=== PATIENT | male | born 1970 | race African-American/Black ===

== ENCOUNTER 2019-07-07 11:14 | Emergency (ER) | payer OTHER ==
[2019-07-07] MEDS ORDERED: Amoxicillin/Clavulanate K 875-125 MG Tab PO ONE (11:42)
[2019-07-07] MEDS ORDERED: Diphtheria,Pertussis(Acell),Tetanus Vaccine 0.5 ML SDV IM ONE (11:42)
[2019-07-07] MEDS ORDERED: Bacitracin/Neomycin/Polymyxin B Oint 0.9 GM U/D Packet TOP ONE (11:43)
--- NOTE | 2019-07-07 11:49 | EDM.PDOC ---
ED HPI GENERAL MEDICAL PROBLEM - General Chief Complaint: Upper Extremity Injury/Pain Stated Complaint: crush injury of left index finger Time Seen by Provider: 07/07/19 11:18 Source of Information: Reports: Patient History Limitations: Reports: No Limitations - History of Present Illness INITIAL COMMENTS - FREE TEXT/NARRATIVE: Smashed left index finger in piece of equipment Unknown tetanus status Onset: Today, Sudden Location: Reports: Upper Extremity, Left Severity: Moderate Context: Reports: Trauma Treatments CHECK INSPECTOR: Reports: Cold Therapy Past Medical History - Past Health History Medical/Surgical History: Denies Medical/Surgical History Social & Family History - Tobacco Use Smoking Status *Q: Never Smoker Second Hand Smoke Exposure: No - Caffeine Use Caffeine Use: Reports: Tea - Recreational Drug Use Recreational Drug Use: No Review of Systems - Review of Systems Review Of Systems: See Below Musculoskeletal: Reports: Other (Crush injury to left index finger) ED EXAM, GENERAL - Physical Exam Exam: See Below Exam Limited By: No Limitations General Appearance: Alert Extremities: Other (Left index finger with swelling Smal puncture wound to finger in mid-finger Limited ROM due to pain Cap refill < 3 seconds Sensation intact) Course - Vital Signs Last Recorded V/S: Last Vital Signs Temp 98.8 F 07/07/19 11:25 Pulse 54 L 07/07/19 11:25 Resp 14 07/07/19 11:25 BP 128/98 H 07/07/19 11:25 Pulse Ox 100 07/07/19 11:25 - Orders/Labs/Meds Orders: Active Orders 24 hr Category Date Time Status Vaccines to be Administered [RC] PER UNIT ROUTINE Care 07/07/19 11:42 Active Fingers Second Digit Lt F1 [CR] Stat Exams 07/07/19 11:15 Taken Meds: Medications Discontinued Medications Generic Name Dose Route Start Last Admin Trade Name Freq PRN Reason Stop Dose Admin Amoxicillin/Clavulanate Potassium 1 tab 07/07/19 11:42 Augmentin 875 Mg/125 Mg PO 07/07/19 11:43 ONETIME ONE Diphtheria/Tetanus/Acell Pertussis 0.5 ml 07/07/19 11:42 Adacel IM 07/07/19 11:43 .ONCE ONE Neomycin/Polymyxin/Bacitracin 1 each 07/07/19 11:43 Triple Antibiotic Oint TOP 07/07/19 11:44 ONETIME ONE - Re-Assessments/Exams Free Text/Narrative Re-Assessment/Exam: 07/07/19 11:47 Left index finger with fracture of phalanges between PIP and DIP minimal displacement Puncture wound over fracture Sterile dressing and splint applied Pt given tdap and Augmentin 875 mg in ER Pt to follow up with ortho Rx Tramadol 50 mg every 6 hours for pain Departure - Departure Time of Disposition: 12:00 Disposition: Home, Self-Care 01 Clinical Impression: Open finger fracture Qualifiers: Encounter type: initial encounter Finger: index finger Phalanx: middle Fracture alignment: nondisplaced Laterality: left Qualified Code(s): S62.651B - Nondisplaced fracture of middle phalanx of left index finger, initial encounter for open fracture - Discharge Information *PRESCRIPTION DRUG MONITORING PROGRAM REVIEWED*: Not Applicable *COPY OF PRESCRIPTION DRUG MONITORING REPORT IN PATIENT HERNESTO: Not Applicable Instructions: Finger Fracture, Adult, [id number] Additional Instructions: Wear splint Keep wound clean Follow up with ortho Rx Augmentin 875 mg BID for 5 days Rx Tramadol 50 mg every 6 hours for pain #15 Follow up in clinic Sepsis Event Note - Evaluation Sepsis Screening Result: No Definite Risk - Focused Exam Vital Signs: Vital Signs Temp Pulse Resp BP Pulse Ox 07/07/19 11:25 98.8 F 54 L 14 128/98 H 100 Date Exam was Performed: 07/07/19 Time Exam was Performed: 11:44 - My Orders Last 24 Hours: My Active Orders 07/07/19 11:15 Fingers Second Digit Lt F1 [CR] Stat 07/07/19 11:42 Vaccines to be Administered [RC] PER UNIT ROUTINE - Assessment/Plan Last 24 Hours: My Active Orders 07/07/19 11:15 Fingers Second Digit Lt F1 [CR] Stat 07/07/19 11:42 Vaccines to be Administered [RC] PER UNIT ROUTINE
[2019-07-07] MEDS ORDERED: Acetaminophen 325 MG Tab PO ONE (12:05)
== END 2019-07-07 12:30 | disposition home or self-care (01) ==
LOC: LL.ED 11:14
DX: S62.651B Nondisplaced fracture of middle phalanx of left index finger, initial encounter for open fracture (principal); S61.233A Puncture wound without foreign body of left middle finger without damage to nail, initial encounter; Z23 Encounter for immunization; W31.9XXA Contact with unspecified machinery, initial encounter
CPT/HCPCS: 29130; 73140-F1; 90471; 90715; 99283-25; A9270-GY